=== PATIENT | female | born 1975 | race Caucasian/White ===

== ENCOUNTER 2021-08-06 13:40 | Inpatient (IN) ==
[2021-08-06 15:30] LABS: Bacteria,Urine Few per hpf (None-Few); Bilirubin,Urine Negative (Negative); Blood,Urine Negative (Negative); Clarity,Urine Clear (Clear); Color,Urine Light-Yellow (Yellow); Glucose,Urine (UA) >=1000 mg/dL (Normal); Ketones,Urine Negative (Negative); Leukocyte Esterase,Urine Negative (Negative); Nitrite,Urine Negative (Negative); PH,Urine 5.5 pH Units (5.0-8.0); Protein,Urine Negative (Neg-Trace); RBC,Urine 0-3 per hpf (0-3); Specific Gravity,Urine 1.024 (1.010-1.025); Squamous Epithelial Cell,Urine Moderate per hpf (None-Few); Urobilinogen,Urine Normal (Normal); WBC,Urine 0-3 per hpf (0-3)
[2021-08-06 15:45] LABS: Amphetamine Screen,Urine Negative ng/mL (Cutoff=1000); Barbiturate Screen,Urine Negative ng/mL (Cutoff=200); Benzodiazepines Screen,Urine Negative ng/mL (Cutoff=200); Cannabinoid Screen,Urine Negative ng/mL (Cutoff = 50); Cocaine Screen,Urine Negative ng/mL (Cutoff= 300); Opiate Screen,Urine Positive ng/mL (Cutoff=300); Phencyclidine Screen,Urine Negative ng/mL (Cutoff=25)
[2021-08-06 15:52] LABS: Basophils # 0.1 K/mcL (0.0-0.2); Basophils % 0.9 %; Eosinophils # 0.2 K/mcL (0.0-0.6); Eosinophils % 2.4 %; Hematocrit 44.3 % (35.3-44.9); Immature Granulocytes % 0.2 % (0-4); Lymphocytes # 2.7 K/mcL (0.6-4.6); Lymphocytes % 30.2 %; Mean Corpuscular HGB Conc 33.9 g/dL (31.6-35.5); Mean Corpuscular Hemoglobin 30.4 pg (28.0-33.3); Mean Corpuscular Volume 89.9 fL (83.0-100.0); Mean Platelet Volume 10.2 fL (9.4-12.4); Monocytes # 0.7 K/mcL (0.0-1.3); Monocytes % 8.2 %; Neutrophils # 5.1 K/mcL (1.6-8.9); Platelet Count 224 K/mcL (140-400); Red Blood Count 4.93 M/mcL (3.82-4.97); Red Cell Distribution Width 13.7 % (11.5-14.5); Segmented Neutrophils % 58.1 %; White Blood Count 8.8 K/mcL (4.3-11.1)
[2021-08-06 16:10] LABS: Acetaminophen < 10 mcg/mL (10-20); Alanine Aminotransferase 26 Units/L (7-52); Albumin 3.8 g/dL (3.5-5.7); Albumin/Globulin Ratio 1.4 (1.1-2.2); Alkaline Phosphatase 103 Units/L (34-104); Aspartate Amino Transferase 34 Units/L (13-39); BUN/Creatinine Ratio 14 (6-26); Bilirubin,Direct 0.1 mg/dL (0.0-0.2); Bilirubin,Indirect 0.5 mg/dL (0.0-1.0); Bilirubin,Total 0.6 mg/dL (0.3-1.0); Blood Urea Nitrogen 9 mg/dL (6-20); Calcium 9.1 mg/dL (8.6-10.3); Carbon Dioxide 24 mEq/L (23-29); Chloride 105 mEq/L (98-107); Ethanol < 10 mg/dL (Less than 10); Globulin 2.7 g/dL (2.4-3.5); Glucose 194 mg/dL (70-105); Osmolality,Calculated 286 (280-300); Salicylate < 2.5 mg/dL (15.0-30.0); Sodium 136 mEq/L (136-145); Total Protein 6.5 g/dL (6.4-8.9); eGFR For African Americans > 60 (> 60); eGFR For Non-African Americans > 60 (> 60)
[2021-08-06] MEDS: Nicotine 21 MG PATCH.TD24 TD SCH (18:19)
[2021-08-06 20:56] LABS: Influenza A PCR Negative (Negative); Influenza B PCR Negative (Negative); Resp. Syncytial Virus PCR Negative (Negative); SARS-CoV-2 by PCR (In House) Negative (Negative)
[2021-08-06] MEDS ORDERED: Acetaminophen 325 MG TABLET PO PRN (21:21)
[2021-08-06] MEDS ORDERED: haloperidoL 5 MG TABLET PO PRN (21:21)
[2021-08-06] MEDS ORDERED: *HR* LORazepam 1 MG TABLET PO PRN (21:21)
[2021-08-06] MEDS ORDERED: Haloperidol Lactate 5 MG/ML VIAL IM PRN (21:21)
[2021-08-06] MEDS ORDERED: *HR* LORazepam 2 MG/ML VIAL IM PRN (21:21)
[2021-08-06] MEDS: *HR* HYDROcodone/Acet 5/325 mg TABLET PO PRN (23:09)
[2021-08-06] MEDS: traZODone 50 MG TABLET PO PRN (23:09)
[2021-08-06] MEDS: hydrOXYzine pamoate 25 MG CAPSULE PO PRN (23:09)
[2021-08-07] MEDS ORDERED: MOM Conc 10 ML UD.LIQ PO PRN (08:01)
[2021-08-07] MEDS ORDERED: Mag Hydrox/Al Hydrox/Simeth 30 ML UDC PO PRN (08:01)
[2021-08-07] MEDS: Nicotine 21 MG PATCH.TD24 TD SCH (08:48)
[2021-08-07] MEDS: *HR* HYDROcodone/Acet 5/325 mg TABLET PO PRN ×2 (08:49→22:00)
[2021-08-07] MEDS ORDERED: Pregabalin 75 MG CAPSULE PO SCH (09:00)
[2021-08-07] MEDS: amLODIPine 5 MG TABLET PO SCH (09:28)
[2021-08-07] MEDS: lisinopriL 20 MG TABLET PO SCH (09:28)
[2021-08-07] MEDS: hydrOXYzine pamoate 25 MG CAPSULE PO PRN (21:59)
[2021-08-07] MEDS: traZODone 50 MG TABLET PO PRN (22:00)
[2021-08-08 08:42] VITALS: BP 130/86; PULSE 82; TEMP 97.7; O2SAT 96
[2021-08-08] MEDS: lisinopriL 20 MG TABLET PO SCH (08:47)
[2021-08-08] MEDS: Nicotine 21 MG PATCH.TD24 TD SCH (08:47)
[2021-08-08] MEDS: amLODIPine 5 MG TABLET PO SCH (08:47)
== END 2021-08-08 11:05 | disposition home or self-care (01) | DRG 751 ==
LOC: EMEROOARM 13:40 → 1ANU 21:15
PROVIDERS: ADMIT Psychiatry & Neurology Psychiatry; ATTEND Psychiatry & Neurology Psychiatry